=== PATIENT | female | born 1975 | race Caucasian/White ===

== ENCOUNTER 2020-10-26 18:28 | Observation (INO) | payer OTHER ==
[~2020-10-26] VITALS: Ht 167.6 cm; Wt 76.7 kg
[2020-10-26] MEDS ORDERED: SODIUM CHLORIDE 0.9% 1000ML 1,000 ML IV ONE ×2 (21:24→21:56)
[2020-10-26] MEDS ORDERED: METOCLOPRAMIDE 10 MG/2 ML VIAL ONE (21:24)
[2020-10-26] MEDS ORDERED: ONDANSETRON HCL 4 MG/2 ML VIAL ONE ×2 (21:24→23:26)
[2020-10-26] MEDS ORDERED: GLUCAGON 1MG KIT 1 MG ML ONE ×2 (21:25→21:56)
[2020-10-26 21:27] LABS: BASOPHILS % (AUTO) 0.6 % (0.0-5.0); HEMATOCRIT 38.5 % (36-48); LYMPHOCYTES % (AUTO) 9.7 % (21.0-51.0); MEAN CORPUSCULAR HEMOGLOBIN 31.2 pg (27.0-33.0); MEAN CORPUSCULAR HGB CONC 35.1 g/dL (32.0-36.0); MEAN CORPUSCULAR VOLUME 88.9 fL (79-99); MONOCYTES % (AUTO) 5.7 % (3.0-13.0); NEUTROPHILS % (AUTO) 82.9 % (40.0-77.0); PLATELET COUNT (AUTO) 218 K/uL (130-400); RED BLOOD CELL COUNT(AUTO) 4.33 MIL/uL (4.00-5.50); RED CELL DISTRIBUTION WIDTH 12.5 % (11.0-15.5); WHITE BLOOD COUNT (AUTO) 7.7 K/uL (4.8-10.8)
[2020-10-26 21:37] LABS: CREATININE 0.9 mg/dL (0.5-1.5); POTASSIUM 4.3 mmol/L (3.5-5.1)
[2020-10-26 21:38] LABS: INR 0.99 (0.85-1.15); PROTHROMBIN TIME 10.8 SEC (9.6-11.6)
[2020-10-26 21:40] LABS: PARTIAL THROMBOPLASTIN TIME 24.6 SEC (26.3-35.5)
[2020-10-26 21:41] LABS: ALBUMIN 4.4 g/dL (3.5-5.0); BILIRUBIN,TOTAL 0.4 mg/dL (0.2-1.0); TOTAL PROTEIN, SERUM 7.7 g/dL (6.0-8.3)
[2020-10-26] MEDS ORDERED: LORAZEPAM 2 MG/ML 1 ML VIAL ONE (23:27)
[2020-10-26] MEDS ORDERED: MORPHINE SULFATE 2 MG/ML 1ML SYG ONE (23:28)
[2020-10-27] VITALS (17 sets, daily range): BP systolic 103–124; BP diastolic 51–77
[2020-10-27] MEDS ORDERED: ACETAMINOPHEN 325 MG TAB PO PRN ×2 (00:15)
[2020-10-27] MEDS ORDERED: MORPHINE SULFATE 2 MG/ML 1ML SYG IV PRN (00:15)
[2020-10-27] MEDS ORDERED: ONDANSETRON HCL 4 MG/2 ML VIAL IV PRN (00:15)
[2020-10-27] MEDS ORDERED: SODIUM CHLORIDE 0.9% 1000ML 1,000 ML IV SCH (00:15)
[2020-10-27] MEDS ORDERED: LEVO125C4 PO (05:29)
[2020-10-27] MEDS ORDERED: LISI10TA24 PO (05:29)
[2020-10-27 05:55] LABS: BASOPHILS % (AUTO) 0.5 % (0.0-5.0); EOSINOPHILS % (AUTO) 2.3 % (0.0-8.0); HEMATOCRIT 40.5 % (36-48); LYMPHOCYTES % (AUTO) 13.5 % (21.0-51.0); MEAN CORPUSCULAR HEMOGLOBIN 29.8 pg (27.0-33.0); MEAN CORPUSCULAR HGB CONC 33.1 g/dL (32.0-36.0); MEAN CORPUSCULAR VOLUME 90.2 fL (79-99); MONOCYTES % (AUTO) 7.5 % (3.0-13.0); NEUTROPHILS % (AUTO) 75.8 % (40.0-77.0); PLATELET COUNT (AUTO) 243 K/uL (130-400); RED BLOOD CELL COUNT(AUTO) 4.49 MIL/uL (4.00-5.50); RED CELL DISTRIBUTION WIDTH 12.7 % (11.0-15.5); WHITE BLOOD COUNT (AUTO) 9.2 K/uL (4.8-10.8)
[2020-10-27 06:05] LABS: CREATININE 0.9 mg/dL (0.5-1.5); POTASSIUM 3.6 mmol/L (3.5-5.1)
[2020-10-27] MEDS ORDERED: SUCCINYLCHOLINE 200MG/10ML SYR ONE (06:24)
[2020-10-27] MEDS ORDERED: PROPOFOL 10 MG/ML 20ML VIAL IV ONE (06:24)
[2020-10-27] MEDS ORDERED: FENTANYL CITRATE PF 50 MCG/1 ML 2ML VIAL ONE (06:24)
[2020-10-27] MEDS ORDERED: LIDOCAINE HCL 2% 20ML ONE (06:26)
[2020-10-27] MEDS ORDERED: FAMOTIDINE/PF 20 MG/2 ML VIAL IV SCH (09:00)
[2020-10-27] MEDS ORDERED: PANTOPRAZOLE SODIUM 40 MG TABLET.DR PO SCH ×2 (12:00→12:15)
[2020-10-27] MEDS ORDERED: PANT40TA54 PO (15:06)
== END 2020-10-27 15:50 | disposition home or self-care (01) ==
LOC: EDH 18:28 → EDHIP 10-27 00:20 → 3AH 10-27 01:43 → EDHIP 10-27 02:03 → 4BH 10-27 04:30
PROVIDERS: ADMIT Internal Medicine; ATTEND Internal Medicine
DX: T18.108A Unspecified foreign body in esophagus causing other injury, initial encounter (principal); K20.90 Esophagitis, unspecified without bleeding; K31.89 Other diseases of stomach and duodenum; I10 Essential (primary) hypertension; E89.0 Postprocedural hypothyroidism; Z90.49 Acquired absence of other specified parts of digestive tract; Z79.899 Other long term (current) drug therapy
CPT/HCPCS: 36415 ×2; 43239; 70360; 71046; 80048; 80053; 83690; 85025 ×2; 85610; 85730; 96361; 96374; 99285; A4215; A4606; A4615; A4657; G0378 ×14; J0330; J1610 ×2; J2060; J2405 ×3; J2704; J2765; J3010; J3490 ×2; J7030 ×2

== ENCOUNTER → 2020-11-12 | Outpatient (CLI) | payer OTHER ==
[~2020-11-12] MED LIST: LEVO125C4 PO; LISI10TA24 PO; PANT40TA54 PO
== END | disposition home or self-care (01) ==
LOC: RAH 08:49
PROVIDERS: ATTEND Internal Medicine Gastroenterology
DX: T18.108D Unspecified foreign body in esophagus causing other injury, subsequent encounter (principal); K22.4 Dyskinesia of esophagus; X58.XXXD Exposure to other specified factors, subsequent encounter
CPT/HCPCS: 74220

== ENCOUNTER → 2024-09-04 | Outpatient (CLI) | payer OTHER ==
[~2024-09-04] MED LIST changes: +FLUT16H NASAL; +LATA2.5D14 OD; +LEVO112T7 PO; +PROG100C11 PO; +SERT-439 PO
--- NOTE | 2024-09-04 10:01 | HMCIMG ---
ESOPHAGUS REASON: ESOPHAGEAL OBSTRUCTION; DYSPHAGIA; ESOPHAGEAL WEB. COMPARISON: None TECHNIQUE: Esophagram study was performed. FINDINGS: There is no obstruction to the antegrade passage of barium from mouth through stomach. A normal esophageal stripping wave is seen. There is small hiatal hernia. There is gastroesophageal reflux into the level of upper thoracic esophagus. IMPRESSION: No obstruction. Small hiatal hernia. Gastroesophageal reflux to the level of upper thoracic esophagus.
== END | disposition home or self-care (01) ==
LOC: RAH 09:01
PROVIDERS: ATTEND Internal Medicine Gastroenterology
DX: K22.2 Esophageal obstruction (principal); K44.9 Diaphragmatic hernia without obstruction or gangrene; K21.9 Gastro-esophageal reflux disease without esophagitis; Q39.4 Esophageal web; R13.10 Dysphagia, unspecified
CPT/HCPCS: 74220